=== PATIENT | female | born 1940 | race Native Hawaiian/Other Pacific Islander ===

== ENCOUNTER 2016-06-22 10:05 | Outpatient (CLI) | payer OTHER, BC ==
[~2016-06-22 10:05] MED LIST: AMLO5TAB PO; ASA LO-DOSE81 MG OR; BENA20TA2 PO; CARV12.5 PO; CYAN100010 IM; FLUO20CA6 PO; FURO40TA93 PO; GABA300C2 PO; GLIMEPIRIDE1 MG PO; INSU100I2 SC; INSUINJ47 SC; KLOR-CON M2020 MEQ OR; LEVO0.117 PO; METFORMIN ER1000 MG PO; OMEP40CA PO; ONGLYZA5 MG OR; SIMV20TA2 PO; ULTRACET1 TAB OR; VESICARE5 MG OR
[2016-06-22 10:44] LABS: PLATELET COUNT 208 K/uL (152-353)
[2016-06-22 10:58] LABS: POTASSIUM 4.5 mmol/L (3.6-5.2); SODIUM 137 mmol/L (136-145)
== END 2016-06-22 19:06 | disposition home or self-care (01) ==
LOC: LABW 10:05 → US 10:30 → LABW 19:06
PROVIDERS: Internal Medicine Cardiovascular Disease
DX: E78.4 Other hyperlipidemia (principal); Z79.899 Other long term (current) drug therapy; I25.89 Other forms of chronic ischemic heart disease; I10 Essential (primary) hypertension; E10.9 Type 1 diabetes mellitus without complications
CPT/HCPCS: 36415; 80048; 80061; 80076; 85027

== ENCOUNTER 2016-08-17 13:45 | Outpatient (CLI) | payer OTHER, BC | END 2016-08-17 19:10 | disposition home or self-care (01) | LOC: MAMMO 13:45 | DX: Z12.31 Encounter for screening mammogram for malignant neoplasm of breast (principal) | CPT/HCPCS: G0202-TC ==

== ENCOUNTER 2016-09-13 12:00 | Outpatient (CLI) | payer OTHER, BC | END 2016-09-13 13:00 | disposition home or self-care (01) | LOC: RAD 12:00 | DX: M25.551 Pain in right hip (principal) ==

== ENCOUNTER 2016-10-28 13:43 | Outpatient (CLI) | payer OTHER, BC | END 2016-10-28 19:01 | disposition home or self-care (01) | LOC: MAMMO 13:43 | DX: N64.59 Other signs and symptoms in breast (principal) ==

== ENCOUNTER 2021-04-03 15:10 | Inpatient (IN) | payer OTHER, BC ==
[~2021-04-03] VITALS: Ht 157.5 cm; Wt 55.9 kg
[~2021-04-03 15:10] MED LIST changes: -AMLO5TAB PO; +AMLODIPINE BESYLATE PO; -BENA20TA2 PO; +BENAZEPRIL HYDR40 MG PO; -LEVO0.117 PO; +LEVO0.1T6 PO
[2021-04-03 23:49] VITALS: BP 179/62; TEMP 98.4; Ht 157.5 cm; Wt 55.9 kg
[2021-04-04] MEDS ORDERED: VITAMIN D50000 UNIT PO (16:26)
[2021-04-04] MEDS ORDERED: CLOPIDOGREL75 MG PO (16:27)
[2021-04-04] MEDS ORDERED: DULOXETINE HCL30 MG PO (16:28)
[2021-04-04] MEDS ORDERED: OXYBUTYNIN15 MG PO (16:29)
[2021-04-04] MEDS ORDERED: ROSUVASTATIN CA20 MG PO (16:30)
[2021-04-04] MEDS ORDERED: HYDR5TAB9 PO (16:32)
[2021-04-04] MEDS ORDERED: INSUINJ20 SC (16:34)
[2021-04-04 20:00] VITALS: BP 144/56; TEMP 98.8
[2021-04-05 20:00] VITALS: BP 111/46; TEMP 97.4
[2021-04-06 08:00] VITALS: BP 124/53; TEMP 98.5
[2021-04-06 20:25] VITALS: BP 121/51; TEMP 98.7
[2021-04-07 20:31] VITALS: BP 137/59; TEMP 98.4
[2021-04-08 09:25] VITALS: BP 157/76; TEMP 97.8
[2021-04-08 20:00] VITALS: BP 131/57; TEMP 98.1
[2021-04-09 08:00] VITALS: BP 142/54; TEMP 98
[2021-04-09 20:00] VITALS: BP 118/52; TEMP 98.2
[2021-04-10 19:44] VITALS: BP 123/53; TEMP 97.6
[2021-04-11 08:00] VITALS: BP 126/66; TEMP 98.3
[2021-04-11 20:28] VITALS: BP 144/67; TEMP 98.1
[2021-04-13 09:42] VITALS: BP 148/63; TEMP 97.7
[2021-04-13 20:00] VITALS: BP 126/56; TEMP 98.1
[2021-04-14 20:00] VITALS: BP 128/59; TEMP 98.3
[2021-04-15 20:00] VITALS: BP 132/48; TEMP 98.4
[2021-04-17 20:38] VITALS: BP 166/61; TEMP 98.2
[2021-04-18 20:00] VITALS: BP 138/55; TEMP 98.4
[2021-04-19 08:00] VITALS: BP 144/60; TEMP 98.3
[2021-04-20 19:59] VITALS: BP 151/51; TEMP 98.7
[2021-04-21 08:00] VITALS: BP 144/49; TEMP 98.2
[2021-04-21 20:06] VITALS: BP 121/53; TEMP 98.7
[2021-04-22 20:00] VITALS: BP 120/72; TEMP 98.2
[2021-04-23 20:00] VITALS: BP 141/57; TEMP 98.7
[2021-04-24 08:00] VITALS: BP 157/58; TEMP 97.6
[2021-04-24 19:46] VITALS: BP 165/57; TEMP 98.1
[2021-04-25 08:34] VITALS: BP 142/54; TEMP 98.1
[2021-04-25 19:41] VITALS: BP 147/57; TEMP 98.3
[2021-04-26 08:00] VITALS: BP 143/55; TEMP 97.8
== END 2021-04-26 12:50 | disposition home health service (06) | DRG 561 ==
LOC: SWING 15:10 → MED/SURG 20:49
PROVIDERS: ADMIT Internal Medicine; ATTEND Internal Medicine
DX: S72.142D Displaced intertrochanteric fracture of left femur, subsequent encounter for closed fracture with routine healing (principal); Z91.81 History of falling; E11.65 Type 2 diabetes mellitus with hyperglycemia; Z79.4 Long term (current) use of insulin; I25.10 Atherosclerotic heart disease of native coronary artery without angina pectoris; Z95.1 Presence of aortocoronary bypass graft; M62.81 Muscle weakness (generalized); R26.81 Unsteadiness on feet; Z74.1 Need for assistance with personal care; F41.9 Anxiety disorder, unspecified; I10 Essential (primary) hypertension; K21.9 Gastro-esophageal reflux disease without esophagitis; E03.9 Hypothyroidism, unspecified; F32.9 Major depressive disorder, single episode, unspecified; N32.81 Overactive bladder; Z96.653 Presence of artificial knee joint, bilateral
CPT/HCPCS: 81000; 82947; 87077; 87086; 87088; 87186; J1815

== ENCOUNTER 2021-08-12 10:12 | Outpatient (CLI) | payer OTHER, BC ==
[~2021-08-12 10:12] MED LIST changes: +CLOPIDOGREL75 MG PO; +DULOXETINE HCL30 MG PO; +HYDR5TAB9 PO; +INSUINJ20 SC; +OXYBUTYNIN15 MG PO; +ROSUVASTATIN CA20 MG PO; +VITAMIN D50000 UNIT PO
== END 2021-08-12 19:11 | disposition home or self-care (01) ==
LOC: RAD 10:12
PROVIDERS: ATTEND Internal Medicine
DX: Z13.820 Encounter for screening for osteoporosis (principal); N95.1 Menopausal and female climacteric states; N95.8 Other specified menopausal and perimenopausal disorders